=== PATIENT | female | born 2005 | race African-American/Black ===

== ENCOUNTER 2023-06-15 21:22 | Emergency (ER) | payer OTHER ==
[2023-06-15 21:39] VITALS: BP 133/83; PULSE 112; RESP 20; TEMP 99.9; BMI 54.6
[2023-06-15] MEDS ORDERED: IBUPROFEN 600 MG TABLET (FP) PO ONE ×2 (22:08→22:20)
[2023-06-15] MEDS ORDERED: AZITHROMYCIN 500 MG TABLET ONE (22:34)
[2023-06-15] MEDS ORDERED: AZITHROMYCIN 500 MG TABLET PO ONE (22:34)
== END 2023-06-15 22:43 | disposition home or self-care (01) ==
LOC: FER 21:22
DX: R05.9 Cough, unspecified (principal); R09.81 Nasal congestion; J40 Bronchitis, not specified as acute or chronic; Z20.822 Contact with and (suspected) exposure to COVID-19
CPT/HCPCS: 0241U-QW; 71046-TC-FY; 81025; 99284-25

== ENCOUNTER 2023-06-17 14:35 | Inpatient (IN) | payer OTHER ==
[2023-06-17] MEDS ORDERED: methylPREDNISolone NA SUCC 125 MG/2 ML VIAL IVPUSH ONE (15:06)
[2023-06-17] MEDS ORDERED: methylPREDNISolone NA SUCC 125 MG/2 ML VIAL ONE (16:20)
[2023-06-17] MEDS: ALBUTEROL SO4 2.5/IPRATROPIUM 0.5 INH SOL 3 ML VIAL.NEB. NEB SCH ×2 (16:51→18:33)
[2023-06-17 16:57] LABS: BASO % 0.3 % (0-2.0); EOS % 0.9 % (0-4.5); HEMATOCRIT 34.9 % (32.4-45.2); HEMOGLOBIN 11.3 GM/dL (10.7-15.3); LYMPH % 30.2 % (8-40); MCH 26.1 pg (25.7-33.7); MCHC 32.4 g/dl (32.0-36.0); MEAN CELL VOLUME 80.6 fl (80-96); MEAN PLT VOLUME 8.5 fl (7.5-11.1); MONO % 7.2 % (3.8-10.2); NEUT % 61.4 % (42.8-82.8); PLATELET COUNT 305 10^3/uL (134-434); RBC 4.33 M/mm3 (3.60-5.2); RDW 16.2 % (11.6-15.6); WHITE BLOOD COUNT 7.7 K/mm3 (4.0-10.0)
[2023-06-17 16:59] LABS: VENOUS BASE EXCESS -6.9 mmol/L (-2-2); VENOUS O2 SATURATION 63.6 % (70-80); VENOUS PCO2 38.7 mmHg (38-52); VENOUS PH 7.305 (7.310-7.410)
[2023-06-17 17:29] LABS: POTASSIUM 3.4 mmol/L (3.5-5.1)
[2023-06-17 17:32] LABS: ALBUMIN 3.1 g/dl (3.4-5.0); BLOOD UREA NITROGEN 8.6 mg/dL (7-18); CALCIUM 8.5 mg/dL (8.5-10.1)
[2023-06-17 17:37] LABS: BILIRUBIN,TOTAL 0.3 mg/dL (0.2-1); TOT PROT 7.3 g/dl (6.4-8.2)
[2023-06-17] MEDS ORDERED: ALBUTEROL SO4 2.5/IPRATROPIUM 0.5 INH SOL 3 ML VIAL.NEB. NEB ONE ×2 (18:29→18:30)
[2023-06-17] MEDS ORDERED: APIXABAN 5 MG TABLET PO ONE (19:13)
[2023-06-17] MEDS ORDERED: AZITHROMYCIN IVPB 500 MG in DEXTROSE 5%-WATER - 250 ML IVPB ONE (19:16)
[2023-06-17] MEDS ORDERED: CEFTRIAXONE 1 GM/50 ML BAG ONE (19:31)
[2023-06-17] MEDS ORDERED: AZITHROMYCIN IVPB 500 MG/250 ML BAG IVPB ONE (19:31)
[2023-06-17] MEDS ORDERED: APIXABAN 5 MG TABLET ONE (19:31)
[2023-06-17 19:36] LABS: INR 1.24 (0.83-1.09); PROTHROMBIN TIME (PATIENT) 14.3 SEC (9.7-13.0)
[2023-06-17 19:39] LABS: ACTIVATED PTT 29.2 SECONDS (25.2-36.5)
[2023-06-17] MEDS ORDERED: POTASSIUM CHLORIDE ORAL LIQUID 20 MEQ/15 ML PO ONE (21:45)
[2023-06-17] MEDS ORDERED: INSULIN SLIDING SCALE (NOVOLOG) 1 VIAL SQ SCH (22:00)
[2023-06-17 23:11] LABS: N-TERMINAL BNP 13.5 pg/ml (5-125)
[2023-06-18 02:18] VITALS: BMI 54.3
[2023-06-18] MEDS: ALBUTEROL SO4 2.5/IPRATROPIUM 0.5 INH SOL 3 ML VIAL.NEB. NEB SCH ×4 (07:45→20:49)
[2023-06-18 07:53] LABS: HEMATOCRIT 35.9 % (32.4-45.2); HEMOGLOBIN 11.4 GM/dL (10.7-15.3); MCH 25.9 pg (25.7-33.7); MCHC 31.7 g/dl (32.0-36.0); MEAN CELL VOLUME 81.6 fl (80-96); MEAN PLT VOLUME 8.3 fl (7.5-11.1); PLATELET COUNT 339 10^3/uL (134-434); RDW 16.7 % (11.6-15.6); WHITE BLOOD COUNT 7.8 K/mm3 (4.0-10.0)
[2023-06-18] MEDS ORDERED: ALBUTEROL SO4 2.5/IPRATROPIUM 0.5 INH SOL 3 ML VIAL.NEB. NEB SCH (08:00)
[2023-06-18] MEDS ORDERED: POTASSIUM CHLORIDE ORAL LIQUID 20 MEQ/15 ML PO ONE (08:08)
[2023-06-18 08:09] LABS: POTASSIUM 4.7 mmol/L (3.5-5.1)
[2023-06-18 08:18] LABS: BLOOD UREA NITROGEN 7.7 mg/dL (7-18)
[2023-06-18 08:21] LABS: CREATININE 0.8 mg/dL (0.55-1.3)
[2023-06-18] MEDS ORDERED: CEFTRIAXONE 1 GM in DEXTROSE 5%-WATER - 50 ML IVPB SCH ×2 (10:00→20:00)
[2023-06-18] MEDS ORDERED: APIXABAN 5 MG TABLET PO SCH (10:00)
[2023-06-18] MEDS ORDERED: AZITHROMYCIN IVPB 500 MG/250 ML BAG IVPB SCH ×2 (10:00→20:00)
[2023-06-18] MEDS ORDERED: PIPERACILLIN/TAZOB 4.5 GM 4.5 GM in DEXTROSE 5%-WATER 100 ML IVPB SCH ×2 (10:15→18:00)
[2023-06-18] MEDS: FLUoxetine HCL 20 MG CAPSULE PO SCH (10:35)
[2023-06-18] MEDS: CHOLECALCIFEROL (VIT D3) 1,000 UNIT (25 MCG) TABLET PO SCH (10:35)
[2023-06-18] MEDS: methylPREDNISolone NA SUCC 40 MG/1 ML VIAL IVPUSH SCH ×2 (10:35→21:32)
[2023-06-18] MEDS: ENOXAPARIN NA (PORCINE) 120 MG/0.8 ML DISP.SYRIN SQ SCH ×2 (11:29→21:32)
[2023-06-18] MEDS: PALIPERIDONE 6 MG TAB.ER.24 PO SCH (11:32)
[2023-06-18] MEDS: AZITHROMYCIN IVPB 500 MG/250 ML BAG IVPB SCH (17:42)
[2023-06-18] MEDS: CEFTRIAXONE 1 GM in DEXTROSE 5%-WATER - 50 ML IVPB SCH (20:51)
[2023-06-18] MEDS: acetaZOLAMIDE 250 MG TABLET PO SCH (21:36)
[2023-06-18 21:51] LABS: BLOOD UREA NITROGEN 11.5 mg/dL (7-18); CALCIUM 8.7 mg/dL (8.5-10.1); CREATININE 0.9 mg/dL (0.55-1.3); PHOSPHOROUS 2.6 mg/dL (2.5-4.9); POTASSIUM 3.9 mmol/L (3.5-5.1)
[2023-06-18] MEDS ORDERED: TOPIRAMATE 25 MG TABLET PO SCH (22:00)
[2023-06-18 22:01] LABS: BASO % 0.3 % (0-2.0); EOS % 0.1 % (0-4.5); HEMATOCRIT 33.6 % (32.4-45.2); HEMOGLOBIN 10.5 GM/dL (10.7-15.3); LYMPH % 18.5 % (8-40); MCH 25.6 pg (25.7-33.7); MCHC 31.2 g/dl (32.0-36.0); MEAN CELL VOLUME 82.1 fl (80-96); MEAN PLT VOLUME 8.4 fl (7.5-11.1); MONO % 5.2 % (3.8-10.2); NEUT % 75.9 % (42.8-82.8); PLATELET COUNT 328 10^3/uL (134-434); RBC 4.09 M/mm3 (3.60-5.2); RDW 16.9 % (11.6-15.6); WHITE BLOOD COUNT 13.7 K/mm3 (4.0-10.0)
[2023-06-19] MEDS: acetaZOLAMIDE 250 MG TABLET PO SCH ×3 (05:44→21:44)
[2023-06-19 06:31] LABS: BASO % 0.2 % (0-2.0); HEMATOCRIT 33.9 % (32.4-45.2); HEMOGLOBIN 10.5 GM/dL (10.7-15.3); LYMPH % 18.5 % (8-40); MCH 25.4 pg (25.7-33.7); MCHC 30.9 g/dl (32.0-36.0); MEAN CELL VOLUME 82.2 fl (80-96); MEAN PLT VOLUME 8.7 fl (7.5-11.1); MONO % 3.7 % (3.8-10.2); NEUT % 77.6 % (42.8-82.8); PLATELET COUNT 337 10^3/uL (134-434); RBC 4.13 M/mm3 (3.60-5.2); RDW 16.8 % (11.6-15.6); WHITE BLOOD COUNT 14.2 K/mm3 (4.0-10.0)
[2023-06-19 06:45] LABS: POTASSIUM 4.4 mmol/L (3.5-5.1)
[2023-06-19 06:50] LABS: ALBUMIN 2.9 g/dl (3.4-5.0); CALCIUM 8.5 mg/dL (8.5-10.1); MAGNESIUM 2.2 mg/dL (1.8-2.4)
[2023-06-19 06:53] LABS: CREATININE 0.7 mg/dL (0.55-1.3); PHOSPHOROUS 3.4 mg/dL (2.5-4.9)
[2023-06-19 06:55] LABS: BILIRUBIN,TOTAL 0.4 mg/dL (0.2-1); TOT PROT 7.1 g/dl (6.4-8.2)
[2023-06-19] MEDS: ALBUTEROL SO4 2.5/IPRATROPIUM 0.5 INH SOL 3 ML VIAL.NEB. NEB SCH ×5 (07:53→20:55)
[2023-06-19] MEDS ORDERED: ENOXAPARIN NA (PORCINE) 120 MG/0.8 ML DISP.SYRIN SQ SCH (08:42)
[2023-06-19] MEDS: CEFTRIAXONE 1 GM in DEXTROSE 5%-WATER - 50 ML IVPB SCH (09:08)
[2023-06-19] MEDS: methylPREDNISolone NA SUCC 40 MG/1 ML VIAL IVPUSH SCH ×2 (09:08→21:43)
[2023-06-19] MEDS: FLUoxetine HCL 20 MG CAPSULE PO SCH (09:09)
[2023-06-19] MEDS: CHOLECALCIFEROL (VIT D3) 1,000 UNIT (25 MCG) TABLET PO SCH (09:09)
[2023-06-19] MEDS: AZITHROMYCIN IVPB 500 MG/250 ML BAG IVPB SCH (09:09)
[2023-06-19] MEDS: PALIPERIDONE 6 MG TAB.ER.24 PO SCH (09:46)
[2023-06-19] MEDS ORDERED: PANTOPRAZOLE SODIUM 40 MG VIAL IVPUSH SCH (10:00)
[2023-06-19] MEDS: TOPIRAMATE 25 MG TABLET PO SCH (21:44)
[2023-06-19] MEDS: ENOXAPARIN NA (PORCINE) 120 MG/0.8 ML DISP.SYRIN SQ SCH (21:44)
[2023-06-20] MEDS: acetaZOLAMIDE 250 MG TABLET PO SCH ×3 (06:21→21:15)
[2023-06-20] MEDS: ALBUTEROL SO4 2.5/IPRATROPIUM 0.5 INH SOL 3 ML VIAL.NEB. NEB SCH ×4 (08:30→21:00)
[2023-06-20] MEDS ORDERED: PALIPERIDONE 6 MG TAB.ER.24 PO SCH (10:00)
[2023-06-20] MEDS: CEFTRIAXONE 1 GM in DEXTROSE 5%-WATER - 50 ML IVPB SCH (10:30)
[2023-06-20] MEDS: PANTOPRAZOLE SODIUM 40 MG VIAL IVPUSH SCH (10:31)
[2023-06-20] MEDS: ENOXAPARIN NA (PORCINE) 120 MG/0.8 ML DISP.SYRIN SQ SCH ×2 (10:32→21:14)
[2023-06-20] MEDS: methylPREDNISolone NA SUCC 40 MG/1 ML VIAL IVPUSH SCH ×2 (10:33→21:14)
[2023-06-20] MEDS: CHOLECALCIFEROL (VIT D3) 1,000 UNIT (25 MCG) TABLET PO SCH (10:34)
[2023-06-20] MEDS: FLUoxetine HCL 20 MG CAPSULE PO SCH (10:34)
[2023-06-20] MEDS: AZITHROMYCIN IVPB 500 MG/250 ML BAG IVPB SCH (12:20)
[2023-06-20] MEDS: PALIPERIDONE 6 MG TAB.ER.24 PO SCH (13:56)
[2023-06-20 15:08] LABS: DRVVT - 43.5 sec (0.0-47.0)
[2023-06-20] MEDS: TOPIRAMATE 25 MG TABLET PO SCH (21:13)
[2023-06-21] MEDS: acetaZOLAMIDE 250 MG TABLET PO SCH ×3 (06:45→21:55)
[2023-06-21] MEDS: ALBUTEROL SO4 2.5/IPRATROPIUM 0.5 INH SOL 3 ML VIAL.NEB. NEB SCH ×5 (07:40→20:05)
[2023-06-21 07:49] LABS: HEMATOCRIT 36.3 % (32.4-45.2); HEMOGLOBIN 11.2 GM/dL (10.7-15.3); MCH 25.4 pg (25.7-33.7); MCHC 30.7 g/dl (32.0-36.0); MEAN CELL VOLUME 82.5 fl (80-96); MEAN PLT VOLUME 8.6 fl (7.5-11.1); PLATELET COUNT 410 10^3/uL (134-434); RDW 17.1 % (11.6-15.6); WHITE BLOOD COUNT 16.6 K/mm3 (4.0-10.0)
[2023-06-21 08:00] LABS: LYMPH % 23.5 % (8-40); NEUT % 71.5 % (42.8-82.8)
[2023-06-21 08:01] LABS: BASO % 0.4 % (0-2.0); MONO % 4.6 % (3.8-10.2); POTASSIUM 4.2 mmol/L (3.5-5.1)
[2023-06-21 08:07] LABS: CALCIUM 8.9 mg/dL (8.5-10.1)
[2023-06-21 08:08] LABS: ALBUMIN 3.1 g/dl (3.4-5.0); BLOOD UREA NITROGEN 9.5 mg/dL (7-18); MAGNESIUM 2.2 mg/dL (1.8-2.4)
[2023-06-21 08:11] LABS: CREATININE 0.7 mg/dL (0.55-1.3); PHOSPHOROUS 3.7 mg/dL (2.5-4.9)
[2023-06-21 08:13] LABS: BILIRUBIN,TOTAL 0.4 mg/dL (0.2-1); TOT PROT 7.7 g/dl (6.4-8.2)
[2023-06-21] MEDS: CEFTRIAXONE 1 GM in DEXTROSE 5%-WATER - 50 ML IVPB SCH (10:59)
[2023-06-21] MEDS: ENOXAPARIN NA (PORCINE) 120 MG/0.8 ML DISP.SYRIN SQ SCH (11:02)
[2023-06-21] MEDS: PANTOPRAZOLE SODIUM 40 MG VIAL IVPUSH SCH (11:06)
[2023-06-21] MEDS: CHOLECALCIFEROL (VIT D3) 1,000 UNIT (25 MCG) TABLET PO SCH (11:07)
[2023-06-21] MEDS: AZITHROMYCIN IVPB 500 MG/250 ML BAG IVPB SCH (11:07)
[2023-06-21] MEDS: methylPREDNISolone NA SUCC 40 MG/1 ML VIAL IVPUSH SCH ×2 (11:07→21:53)
[2023-06-21] MEDS: FLUoxetine HCL 20 MG CAPSULE PO SCH (11:07)
[2023-06-21] MEDS: PALIPERIDONE 6 MG TAB.ER.24 PO SCH (15:23)
[2023-06-21 20:06] LABS: PROTEIN S FREE 108 % (61-136)
[2023-06-21] MEDS: APIXABAN 5 MG TABLET PO SCH (21:54)
[2023-06-21] MEDS: TOPIRAMATE 25 MG TABLET PO SCH (21:54)
[2023-06-22] MEDS: acetaZOLAMIDE 250 MG TABLET PO SCH ×3 (06:28→21:12)
[2023-06-22 07:44] LABS: HEMATOCRIT 34.5 % (32.4-45.2); HEMOGLOBIN 10.8 GM/dL (10.7-15.3); MCH 25.7 pg (25.7-33.7); MCHC 31.4 g/dl (32.0-36.0); MEAN CELL VOLUME 81.9 fl (80-96); MEAN PLT VOLUME 8.4 fl (7.5-11.1); PLATELET COUNT 404 10^3/uL (134-434); RBC 4.21 M/mm3 (3.60-5.2); RDW 16.8 % (11.6-15.6); WHITE BLOOD COUNT 17.2 K/mm3 (4.0-10.0)
[2023-06-22 08:02] LABS: POTASSIUM 4.2 mmol/L (3.5-5.1)
[2023-06-22 08:08] LABS: CALCIUM 8.9 mg/dL (8.5-10.1)
[2023-06-22 08:09] LABS: BLOOD UREA NITROGEN 11.4 mg/dL (7-18); MAGNESIUM 2.4 mg/dL (1.8-2.4)
[2023-06-22 08:11] LABS: CREATININE 0.7 mg/dL (0.55-1.3)
[2023-06-22] MEDS: ALBUTEROL SO4 2.5/IPRATROPIUM 0.5 INH SOL 3 ML VIAL.NEB. NEB SCH ×3 (08:11→15:23)
[2023-06-22 08:12] LABS: PHOSPHOROUS 4.1 mg/dL (2.5-4.9)
[2023-06-22 08:13] LABS: BILIRUBIN,TOTAL 0.3 mg/dL (0.2-1); TOT PROT 7.2 g/dl (6.4-8.2)
[2023-06-22] MEDS: CHOLECALCIFEROL (VIT D3) 1,000 UNIT (25 MCG) TABLET PO SCH (09:37)
[2023-06-22] MEDS: APIXABAN 5 MG TABLET PO SCH ×2 (09:38→21:13)
[2023-06-22] MEDS: PANTOPRAZOLE 40 MG TABLET PO SCH (09:38)
[2023-06-22] MEDS: FLUoxetine HCL 20 MG CAPSULE PO SCH (09:38)
[2023-06-22] MEDS: methylPREDNISolone NA SUCC 40 MG/1 ML VIAL IVPUSH SCH (09:38)
[2023-06-22] MEDS: AZITHROMYCIN IVPB 500 MG/250 ML BAG IVPB SCH (09:39)
[2023-06-22] MEDS: CEFTRIAXONE 1 GM in DEXTROSE 5%-WATER - 50 ML IVPB SCH (09:39)
[2023-06-22] MEDS: PALIPERIDONE 6 MG TAB.ER.24 PO SCH (09:44)
[2023-06-22] MEDS: TOPIRAMATE 25 MG TABLET PO SCH (21:13)
[2023-06-23] MEDS: acetaZOLAMIDE 250 MG TABLET PO SCH ×2 (06:16→14:42)
[2023-06-23] MEDS: ALBUTEROL SO4 2.5/IPRATROPIUM 0.5 INH SOL 3 ML VIAL.NEB. NEB SCH ×3 (07:15→15:56)
[2023-06-23] MEDS: CEFTRIAXONE 1 GM in DEXTROSE 5%-WATER - 50 ML IVPB SCH (10:00)
[2023-06-23] MEDS: APIXABAN 5 MG TABLET PO SCH (10:01)
[2023-06-23] MEDS: CHOLECALCIFEROL (VIT D3) 1,000 UNIT (25 MCG) TABLET PO SCH (10:01)
[2023-06-23] MEDS: PANTOPRAZOLE 40 MG TABLET PO SCH (10:01)
[2023-06-23] MEDS: methylPREDNISolone NA SUCC 40 MG/1 ML VIAL IVPUSH SCH (10:02)
[2023-06-23] MEDS: PALIPERIDONE 6 MG TAB.ER.24 PO SCH (10:03)
[2023-06-23] MEDS: FLUoxetine HCL 20 MG CAPSULE PO SCH (10:04)
[2023-06-23] MEDS: AZITHROMYCIN IVPB 500 MG/250 ML BAG IVPB SCH (10:05)
[2023-06-23 13:28] LABS: BASO % 0.2 % (0-2.0); EOS % 1.6 % (0-4.5); HEMATOCRIT 37.4 % (32.4-45.2); HEMOGLOBIN 11.6 GM/dL (10.7-15.3); LYMPH % 41.6 % (8-40); MCH 25.9 pg (25.7-33.7); MEAN CELL VOLUME 83.6 fl (80-96); MEAN PLT VOLUME 8.6 fl (7.5-11.1); MONO % 5.5 % (3.8-10.2); NEUT % 51.1 % (42.8-82.8); PLATELET COUNT 400 10^3/uL (134-434); RBC 4.48 M/mm3 (3.60-5.2); RDW 16.4 % (11.6-15.6); WHITE BLOOD COUNT 13.5 K/mm3 (4.0-10.0)
[2023-06-23 13:44] LABS: POTASSIUM 3.5 mmol/L (3.5-5.1)
[2023-06-23 13:48] LABS: ALBUMIN 3.1 g/dl (3.4-5.0)
[2023-06-23 13:51] LABS: BLOOD UREA NITROGEN 15.8 mg/dL (7-18)
[2023-06-23 13:53] LABS: BILIRUBIN,TOTAL 0.2 mg/dL (0.2-1); TOT PROT 7.4 g/dl (6.4-8.2)
[2023-06-23 14:25] VITALS: BP 128/71; PULSE 93; RESP 18; TEMP 97.8
== END 2023-06-23 16:34 | disposition home or self-care (01) | DRG 134 ==
LOC: JER 14:35 → JERBED 19:53 → J4W 06-18 02:53 → JICU 06-18 12:01 → J4S 06-19 15:40
PROVIDERS: ADMIT Internal Medicine; ATTEND Internal Medicine
DX: I26.99 Other pulmonary embolism without acute cor pulmonale (principal); J96.01 Acute respiratory failure with hypoxia; J18.9 Pneumonia, unspecified organism; E66.01 Morbid (severe) obesity due to excess calories; Z68.43 Body mass index [BMI] 50.0-59.9, adult; F41.8 Other specified anxiety disorders; G47.33 Obstructive sleep apnea (adult) (pediatric); R73.03 Prediabetes; G43.909 Migraine, unspecified, not intractable, without status migrainosus; R50.9 Fever, unspecified
CPT/HCPCS: 0241U-QW; 36415; 71045-TC-FY; 71046-TC-FY; 71275-TC; 80048; 80053; 80061; 81025; 81240; 81241; 82550; 82553; 82803; 83036; 83735; 83880; 84100; 84443; 84484; 84703; 85025; 85027; 85300; 85303; 85305; 85306; 85379; 85610; 85613; 85730; 85732; 87040; 87070; 87205; 87633; 87899; 93005; 93010; 93306-TC; 93970-TC; 94640; 94761; 97116-GP; 97161-GP; 99291; Q9967

== ENCOUNTER 2023-06-24 17:14 | Emergency (ER) | payer OTHER ==
[2023-06-24 17:56] VITALS: TEMP 98; BMI 54.6
[2023-06-24] MEDS ORDERED: ACETAMINOPHEN 1000 MG/100 ML BAG IVPB ONE (19:36)
[2023-06-24 19:44] LABS: BASO % 0.8 % (0-2.0); HEMATOCRIT 39.3 % (32.4-45.2); HEMOGLOBIN 12.4 GM/dL (10.7-15.3); LYMPH % 32.6 % (8-40); MCHC 31.5 g/dl (32.0-36.0); MEAN CELL VOLUME 82.5 fl (80-96); MEAN PLT VOLUME 8.3 fl (7.5-11.1); MONO % 4.1 % (3.8-10.2); NEUT % 61.5 % (42.8-82.8); PLATELET COUNT 447 10^3/uL (134-434); RBC 4.76 M/mm3 (3.60-5.2); RDW 16.1 % (11.6-15.6); WHITE BLOOD COUNT 16.8 K/mm3 (4.0-10.0)
[2023-06-24] MEDS ORDERED: ACETAMINOPHEN INJECTION 100 ML IVPB ONE (19:44)
[2023-06-24 19:52] LABS: INR 1.26 (0.83-1.09); PROTHROMBIN TIME (PATIENT) 14.6 SEC (9.7-13.0)
[2023-06-24 20:12] LABS: POTASSIUM 3.2 mmol/L (3.5-5.1)
[2023-06-24 20:14] LABS: ALBUMIN 3.5 g/dl (3.4-5.0)
[2023-06-24 20:17] LABS: CREATININE 1.2 mg/dL (0.55-1.3)
[2023-06-24 20:19] LABS: BILIRUBIN,TOTAL 0.2 mg/dL (0.2-1)
[2023-06-24 20:20] LABS: N-TERMINAL BNP 20.9 pg/ml (5-125)
[2023-06-24] MEDS ORDERED: POTASSIUM CHLORIDE TABS 20 MEQ TABLET.ER (FP) PO ONE ×2 (21:41→23:47)
[2023-06-24 23:54] VITALS: BP 125/70; PULSE 86; RESP 15
== END 2023-06-25 00:45 | disposition home or self-care (01) ==
LOC: JER 17:14
PROC: 3E033NZ Introduction of Analgesics, Hypnotics, Sedatives into Peripheral Vein, Percutaneous Approach (ICD-10-PCS; principal; 2023-06-24)
DX: R09.1 Pleurisy (principal); R06.02 Shortness of breath; E87.6 Hypokalemia; Z20.822 Contact with and (suspected) exposure to COVID-19
CPT/HCPCS: 0241U-QW; 36415; 71045-TC-FY; 71275-TC; 80053; 83880; 84484; 84703; 85025; 85610; 86850; 86900; 86901; 93005; 93010; 99285-25; Q9967